=== PATIENT | female | born 1985 | race African-American/Black ===

== ENCOUNTER 2019-03-27 00:34 | Emergency (ER) | payer MEDICAID ==
[~2019-03-27] VITALS: Ht 165.1 cm; Wt 98.6 kg
[2019-03-27 01:18] VITALS: BP 132/79
== END 2019-03-27 04:18 | disposition left against medical advice (07) ==
LOC: ER 00:34
DX: S09.90XA Unspecified injury of head, initial encounter (principal); Z53.21 Procedure and treatment not carried out due to patient leaving prior to being seen by health care provider; X58.XXXA Exposure to other specified factors, initial encounter; Y93.89 Activity, other specified; Y92.89 Other specified places as the place of occurrence of the external cause; Y99.8 Other external cause status